=== PATIENT | male | born 1980 | race Caucasian/White ===

== ENCOUNTER 2017-01-16 21:06 | Emergency (ER) | payer BC, MEDICAID ==
[2017-01-16 21:40] VITALS: BP 130/73
[2017-01-16] MEDS ORDERED: Diphtheria,Pertussis(Acell),Tetanus Vaccine 0.5 ML SDV IM ONE (22:26)
[2017-01-16] MEDS ORDERED: Bacitracin Oint 1 GM U/D Packet TOP ONE (22:26)
--- NOTE | 2017-01-16 22:26 | EDM.PDOC ---
ED HPI GENERAL MEDICAL PROBLEM - General Chief Complaint: Laceration Stated Complaint: CUT LT RING FINGER Time Seen by Provider: 01/16/17 21:08 Source of Information: Reports: Patient History Limitations: Reports: No Limitations - History of Present Illness INITIAL COMMENTS - FREE TEXT/NARRATIVE: Edmund is an otherwise healthy 36-year-old male who presents to the emergency department today after sustaining a laceration to his left fourth finger, palmar portion from a knife he was using to get a deer, knife was soiled. Patient reports he irrigated the wound out well. Tetanus is not up-to-date, patient denies any other injuries. - Related Data Allergies Allergy/AdvReac Type Severity Reaction Status Date / Time Penicillins Allergy Nausea and Verified 01/16/17 21:35 Vomiting Home Meds: Home Meds NK [No Known Home Meds] 01/16/17 [History] Past Medical History - Past Health History Medical/Surgical History: Denies Medical/Surgical History ED ROS GENERAL - Review of Systems Review Of Systems: ROS reveals no pertinent complaints other than HPI. ED EXAM, SKIN/RASH Exam: See Below Exam Limited By: No Limitations General Appearance: Alert, WD/WN, No Apparent Distress Respiratory/Chest: No Respiratory Distress Cardiovascular: Regular Rate, Rhythm Extremities: Normal Inspection, Normal Range of Motion, Normal Capillary Refill Neurological: Alert, Oriented, CN II-XII Intact Psychiatric: Normal Affect, Normal Mood Skin: Warm, Dry, Other (2 cm laceration to the palmar portion of left fourth digit just distal to mid phalange, range of motion is intact, flexion and extension is intact, capillary refill is intact.) ED SKIN PROCEDURES - Laceration/Wound Repair Left Finger Appearance: Subcutaneous Distal NVT: Neuro & Vascular Intact, No Tendon Injury Anesthetic Type: Local Local Anesthesia - Lidocaine (Xylocaine): 1% Plain Local Anesthetic Volume: 3cc Skin Prep: Chlorhexidine (Hibiciens), Saline Closed with: Sutures Suture Size: other (5-0) # of Sutures: 9 Suture Type: Prolene Sterile Dressing Applied: Nurse Tetanus Status Addressed: Yes Complications: No Course - Vital Signs Last Recorded V/S: Last Vital Signs Temp 37.0 C 01/16/17 21:39 Pulse 67 01/16/17 21:39 Resp 14 01/16/17 21:39 BP 130/73 01/16/17 21:39 Pulse Ox 98 01/16/17 21:39 Edmund is an otherwise healthy 36-year-old male who presents to the emergency department today after she sustained a finger laceration from a soiled knife that he was using to get a deer. Please refer to history of present illness and focused exam, suture repair was noted as above without difficulty. Tetanus was updated. Patient tolerated procedure well. Bacitracin and dressing were applied , wound care was discussed, I am going to start patient on a 7 day course of Keflex for wound prophylaxis. Suture removal in 7 days. Return with any complications. Patient was agreeable and discharged in stable condition. - Orders/Labs/Meds Orders: Active Orders 24 hr Category Date Time Status Vaccines to be Administered [RC] PER UNIT ROUTINE Care 01/16/17 22:26 Active Meds: Medications Discontinued Medications Generic Name Dose Route Start Last Admin Trade Name Freq PRN Reason Stop Dose Admin Bacitracin 1 dose 01/16/17 22:26 Bacitracin Oint 1 Gm TOP 01/16/17 22:27 ONETIME ONE Diphtheria/Tetanus/Acell Pertussis 0.5 ml 01/16/17 22:26 Adacel IM 01/16/17 22:27 .ONCE ONE Lidocaine HCl 5 ml 01/16/17 22:00 Xylocaine-Mpf 1% INJECT 01/16/17 22:01 ONETIME ONE Departure - Departure Time of Disposition: 23:00 Disposition: Home, Self-Care 01 Condition: Good Clinical Impression: Laceration of finger Qualifiers: Encounter type: initial encounter Finger: ring finger Damage to nail status: without damage Foreign body presence: without foreign body Laterality: left Qualified Code(s): S61.215A - Laceration without foreign body of left ring finger without damage to nail, initial encounter - Discharge Information Instructions: Laceration Care, Adult, [id number], Stitches, Eze, or Adhesive Wound Closure, [id number] Referrals: Terra Obrien MD [Primary Care Provider] - Forms: ED Department Discharge Additional Instructions: Ibuprofen and Tylenol as needed for pain Keep wound clean and dry, you can get it wet gently dry, do not soak Suture removal in 7 days - My Orders Last 24 Hours: My Active Orders 01/16/17 22:26 Vaccines to be Administered [RC] PER UNIT ROUTINE - Assessment/Plan Last 24 Hours: My Active Orders 01/16/17 22:26 Vaccines to be Administered [RC] PER UNIT ROUTINE
== END 2017-01-16 22:48 | disposition home or self-care (01) ==
LOC: JP.ED 21:06
DX: S61.215A Laceration without foreign body of left ring finger without damage to nail, initial encounter (principal); Z23 Encounter for immunization; Z88.0 Allergy status to penicillin; W26.0XXA Contact with knife, initial encounter
CPT/HCPCS: 12001; 90471; 90715; 99283-25